=== PATIENT | male | born 1985 | race African-American/Black ===

== ENCOUNTER 2018-06-19 17:43 | Emergency (ER) | payer BC, MEDICAID ==
[~2018-06-19] VITALS: Ht 165.1 cm; Wt 126.6 kg
[2018-06-19 17:43] VITALS: BP 142/71
--- NOTE | 2018-06-19 18:44 | PHYS DOC ---
Adult General Chief Complaint Chief Complaint ankle pain [facility] HPI [age] years old male presented to the emergency department with right ankle pain for 3 weeks does not recall any injury to it Review of Systems Review of Systems Constitutional: Denies fever or chills [] Eyes: Denies change in visual acuity, redness, or eye pain [] HENT: Denies nasal congestion or sore throat [] Respiratory: Denies cough or shortness of breath [] Cardiovascular: No additional information not addressed in HPI [] GI: Denies abdominal pain, nausea, vomiting, bloody stools or diarrhea [] : Denies dysuria or hematuria [] Musculoskeletal: Denies back pain Integument: Denies rash or skin lesions [] Neurologic: Denies headache, focal weakness or sensory changes [] Endocrine: Denies polyuria or polydipsia [] All other systems were reviewed and found to be within normal limits, except as documented in this note. Allergies Allergies Allergies Coded Allergies Type Severity Reaction Last Updated Verified Sulfa (Sulfonamide Antibiotics) Allergy Unknown 06/19/18 Yes Uncoded Allergies Type Severity Reaction Last Updated Verified g6pd Allergy Unknown 06/19/18 Physical Exam Physical Exam Constitutional: Well developed, well nourished, no acute distress, non-toxic appearance. [] HENT: Normocephalic, atraumatic, bilateral external ears normal, oropharynx moist, no oral exudates, nose normal. [] Eyes: PERRLA, EOMI, conjunctiva normal, no discharge. [] Neck: Normal range of motion, no tenderness, supple, no stridor. [] Cardiovascular:Heart rate regular rhythm, no murmur [] Lungs & Thorax: Bilateral breath sounds clear to auscultation [] Abdomen: Bowel sounds normal, soft, no tenderness, no masses, no pulsatile masses. [] Skin: Warm, dry, no erythema, no rash. [] Back: No tenderness, no CVA tenderness. [] Extremities: No tenderness, no cyanosis, no clubbing, ROM intact, no edema. [] Neurologic: Alert and oriented X 3, normal motor function, normal sensory function, no focal deficits noted. [] Psychologic: Affect normal, judgement normal, mood normal. [] EKG EKG [] Radiology/Procedures Radiology/Procedures [] Impressions: Ankle sprain Course & Med Decision Making Course & Med Decision Making Pertinent Labs and Imaging studies reviewed. (See chart for details) [] Final Impression Final Impression [] Problems: (1) Mild ankle sprain Qualifiers: Qualified Codes: S93.401A - Sprain of unspecified ligament of right ankle, initial encounter Dragon Disclaimer Dragon Disclaimer This electronic medical record was generated, in whole or in part, using a voice recognition dictation system. CHANTAL GUERRIER MD Jun 19, 2018 18:44
--- NOTE | 2018-06-19 21:56 | RAD ---
Three-view right ankle dated 06/19/2018. No comparison available. Clinical data indication: Right ankle pain for 3 weeks. FINDINGS: 3 views right ankle show normal bony alignment. No displaced fracture. No acute osseous or articular abnormality. Talar dome is intact. Mild soft tissue swelling. IMPRESSION: No apparent acute bony abnormality. Electronically signed by: Jeffery Singletary MD (06/19/2018 9:52 PM) [facility]
== END 2018-06-19 19:04 | disposition home or self-care (01) ==
LOC: ER 17:43
DX: S93.491A Sprain of other ligament of right ankle, initial encounter (principal); Z88.2 Allergy status to sulfonamides; X58.XXXA Exposure to other specified factors, initial encounter; Y93.89 Activity, other specified; Y92.89 Other specified places as the place of occurrence of the external cause; Y99.8 Other external cause status
CPT/HCPCS: 73610; 99283; L4350

== ENCOUNTER 2018-08-22 23:41 | Emergency (ER) | payer BC, MEDICAID ==
[~2018-08-22] VITALS: Ht 165.1 cm; Wt 111.1 kg
--- NOTE | 2018-08-22 23:47 | ED.ADGEN ---
Past History Past Medical History: Anxiety, Bipolar, HIV, Hypertension, Other Alcohol Use: None Drug Use: None Adult General Chief Complaint Chief Complaint ".. I started getting sick a couple days ago.. fever.. sore throat.. congestion .. drainage..." [facility] HPI Patient is a 33 year old male who presents with above hx and complaints of fever , chills, congestion, drainage, pharyngitis, cough, arthralgia, myalgia and malaise. Patient denies any specific ill contacts that all of his work mates have upper respiratory and viral infections. Patient has a significant medical history of diagnosis of HIV in February 2010. Patient has been on Genvoya. Patient's last CD4 count was 1800. Patient's last viral load was 0. Patient take Bactrim because of sulfa allergy G6PD. Patient normally follows with Dr. Becker at infectious disease clinic. Patient no longer uses illicit drugs. Does occasionally smoke marijuana. No smoking x 3 weeks. Patient does not consume alcohol. Review of Systems Review of Systems Constitutional: History fever or chills [] Eyes: Denies change in visual acuity, redness, or eye pain [] HENT: History nasal congestion and sore throat [] Respiratory: The street cough Cardiovascular: No additional information not addressed in HPI [] GI: Denies abdominal pain, nausea, vomiting, bloody stools or diarrhea [] : Denies dysuria or hematuria [] Musculoskeletal: Denies back pain or joint pain [] Integument: Denies rash or skin lesions [] Neurologic: Denies headache, focal weakness or sensory changes [] Endocrine: Denies polyuria or polydipsia [] All other systems were reviewed and found to be within normal limits, except as documented in this note. Family History Family History Noncontributory Current Medications Current Medications Current Medications Medications (Trade) Dose Ordered Sig/Piper Start Time Stop Time Status Last Admin Dose Admin Acetaminophen (Tylenol) 1,000 mg 1X ONCE 08/23/18 00:30 08/23/18 00:31 DC 08/23/18 00:14 1,000 MG Lactated Ringer's 1,000 ml @ 1,000 mls/hr Q1H 08/23/18 00:30 08/23/18 01:29 DC 08/23/18 00:15 1,000 MLS/HR Allergies Allergies Allergies Coded Allergies Type Severity Reaction Last Updated Verified Sulfa (Sulfonamide Antibiotics) Allergy Unknown 06/19/18 Yes Uncoded Allergies Type Severity Reaction Last Updated Verified g6pd Allergy Unknown 06/19/18 Physical Exam Physical Exam Constitutional: Moderately acute distress, non-toxic appearance. [] HENT: Normocephalic, atraumatic, bilateral external ears normal, oropharynx moist, ejected pharynx,post nasal drainage, no oral exudates, nose swollen turbinates and clear rhinorrhea Eyes: PERRLA, EOMI, conjunctiva normal, no discharge. [] Neck: Normal range of motion, no tenderness, supple, no stridor. [] Cardiovascular: Tachycardia Heart rate regular rhythm, no murmur [] Lungs & Thorax: Bilateral breath sounds equal at apex with scattered wheezes auscultation [] Abdomen: Bowel sounds normal, soft, no tenderness, no masses, no pulsatile masses. [] Skin: Warm, dry, no erythema, no rash. [Tattoos Back: No tenderness, no CVA tenderness. [] Extremities: No tenderness, no cyanosis, no clubbing, ROM intact, no edema. [] Neurologic: Alert and oriented X 3, normal motor function, normal sensory function, no focal deficits noted. [] Psychologic: Affect anxious, judgement normal, mood normal. [] Current Patient Data Vital Signs Vital Signs Date Time Temp Pulse Resp B/P (MAP) Pulse Ox O2 Delivery O2 Flow Rate FiO2 08/23/18 01:00 88 20 138/80 (99) 97 Room Air 08/22/18 23:53 98.6 Lab Results Laboratory Tests Test 08/23/18 00:01 08/23/18 00:02 08/23/18 00:22 Urine Collection Type Unknown Urine Color Yellow Urine Clarity Clear Urine pH 7.0 Urine Specific Bison 1.015 Urine Protein Neg (NEG-TRACE) Urine Glucose (UA) Neg mg/dL (NEG) Urine Ketones (Stick) Neg mg/dL (NEG) Urine Blood Neg (NEG) Urine Nitrite Neg (NEG) Urine Bilirubin Neg (NEG) Urine Urobilinogen Dipstick 1 mg/dL (0.2 mg/dL) Urine Leukocyte Esterase Neg (NEG) Urine RBC Rare /HPF (0-2) Urine WBC 0 /HPF (0-4) Urine Squamous Epithelial Cells Occ /LPF Urine Bacteria 0 /HPF (0-FEW) Urine Opiates Screen Neg (NEG) Urine Methadone Screen Neg (NEG) Urine Barbiturates Neg (NEG) Urine Phencyclidine Screen Neg (NEG) Urine Amphetamine/Methamphetamine Neg (NEG) Urine Benzodiazepines Screen Neg (NEG) Urine Cocaine Screen Neg (NEG) Urine Cannabinoids Screen Pos (NEG) Urine Ethyl Alcohol Neg (NEG) White Blood Count 10.9 x10^3/uL (4.0-11.0) Red Blood Count 4.55 x10^6/uL (4.30-5.70) Hemoglobin 13.1 g/dL (13.0-17.5) Hematocrit 40.2 % (39.0-53.0) Mean Corpuscular Volume 89 fL (79-100) Mean Corpuscular Hemoglobin 29 pg (25-35) Mean Corpuscular Hemoglobin Concent 33 g/dL (31-37) Red Cell Distribution Width 12.5 % (11.5-14.5) Platelet Count 273 x10^3/uL (140-400) Neutrophils (%) (Auto) 67 % (31-73) Lymphocytes (%) (Auto) 21 % (24-48) L Monocytes (%) (Auto) 8 % (0-9) Eosinophils (%) (Auto) 3 % (0-3) Basophils (%) (Auto) 1 % (0-3) Neutrophils # (Auto) 7.2 x10^3uL (1.8-7.7) Lymphocytes # (Auto) 2.3 x10^3/uL (1.0-4.8) Monocytes # (Auto) 0.9 x10^3/uL (0.0-1.1) Eosinophils # (Auto) 0.4 x10^3/uL (0.0-0.7) Basophils # (Auto) 0.1 x10^3/uL (0.0-0.2) Sodium Level 137 mmol/L (136-145) Potassium Level 3.9 mmol/L (3.5-5.1) Chloride Level 100 mmol/L (98-107) Carbon Dioxide Level 27 mmol/L (21-32) Anion Gap 10 (6-14) Blood Urea Nitrogen 15 mg/dL (8-26) Creatinine 0.9 mg/dL (0.7-1.3) Estimated GFR (Cockcroft-Gault) 117.6 Glucose Level 95 mg/dL (70-99) Calcium Level 8.9 mg/dL (8.5-10.1) Magnesium Level 1.9 mg/dL (1.8-2.4) Total Bilirubin 0.5 mg/dL (0.2-1.0) Direct Bilirubin 0.1 mg/dL (0.0-0.2) Aspartate Amino Transferase (AST) 17 U/L (15-37) Alanine Aminotransferase (ALT) 29 U/L (16-63) Alkaline Phosphatase 60 U/L (46-116) Creatine Kinase 226 U/L (39-308) Troponin I Quantitative < 0.017 ng/mL (0-0.055) Total Protein 8.2 g/dL (6.4-8.2) Albumin 4.0 g/dL (3.4-5.0) Lipase 107 U/L (73-393) Influenza Type A (Rapid) Negative (NEGATIVE) Influenza Type B (Rapid) Negative (NEGATIVE) Group A Streptococcus Rapid Negative (NEGATIVE) EKG EKG [] Radiology/Procedures Radiology/Procedures My interpretation of chest x-ray shows no acute cardiopulmonary findings.[] Course & Med Decision Making Course & Med Decision Making Pertinent Labs and Imaging studies reviewed. (See chart for details). Push fluids. Take Tylenol and ibuprofen as needed for pain and discomfort and fever. Benadryl 25-50 mg 4 times a day may be helpful for drainage and congestion. Follow-up primary care. Follow-up with infectious disease clinic continue your Genvoya. [] Final Impression Final Impression 1.Viral Syndrome 2. History of HIV diagnosis February 2010- On Genvoya 3. Clinical Sleep Apnea Dragon Disclaimer Dragon Disclaimer This electronic medical record was generated, in whole or in part, using a voice recognition dictation system. Dragon Disclaimer This chart was dictated in whole or in part using Voice Recognition software in a busy, high-work load, and often noisy Emergency Department environment. It may contain unintended and wholly unrecognized errors or omissions. Discharge Summary Visit Information Final Diagnosis Problems Medical Problems: (1) Viral syndrome Status: Acute Brief Hospital Course Allergies Allergies Coded Allergies Type Severity Reaction Last Updated Verified Sulfa (Sulfonamide Antibiotics) Allergy Unknown 06/19/18 Yes Uncoded Allergies Type Severity Reaction Last Updated Verified g6pd Allergy Unknown 12/3/18 Vital Signs Vital Signs Date Time Temp Pulse Resp B/P (MAP) Pulse Ox O2 Delivery O2 Flow Rate FiO2 08/23/18 01:00 88 20 138/80 (99) 97 Room Air 08/22/18 23:53 98.6 Lab Results Laboratory Tests Test 08/23/18 00:01 08/23/18 00:02 08/23/18 00:22 Urine Collection Type Unknown Urine Color Yellow Urine Clarity Clear Urine pH 7.0 Urine Specific Bison 1.015 Urine Protein Neg (NEG-TRACE) Urine Glucose (UA) Neg mg/dL (NEG) Urine Ketones (Stick) Neg mg/dL (NEG) Urine Blood Neg (NEG) Urine Nitrite Neg (NEG) Urine Bilirubin Neg (NEG) Urine Urobilinogen Dipstick 1 mg/dL (0.2 mg/dL) Urine Leukocyte Esterase Neg (NEG) Urine RBC Rare /HPF (0-2) Urine WBC 0 /HPF (0-4) Urine Squamous Epithelial Cells Occ /LPF Urine Bacteria 0 /HPF (0-FEW) Urine Opiates Screen Neg (NEG) Urine Methadone Screen Neg (NEG) Urine Barbiturates Neg (NEG) Urine Phencyclidine Screen Neg (NEG) Urine Amphetamine/Methamphetamine Neg (NEG) Urine Benzodiazepines Screen Neg (NEG) Urine Cocaine Screen Neg (NEG) Urine Cannabinoids Screen Pos (NEG) Urine Ethyl Alcohol Neg (NEG) White Blood Count 10.9 x10^3/uL (4.0-11.0) Red Blood Count 4.55 x10^6/uL (4.30-5.70) Hemoglobin 13.1 g/dL (13.0-17.5) Hematocrit 40.2 % (39.0-53.0) Mean Corpuscular Volume 89 fL (79-100) Mean Corpuscular Hemoglobin 29 pg (25-35) Mean Corpuscular Hemoglobin Concent 33 g/dL (31-37) Red Cell Distribution Width 12.5 % (11.5-14.5) Platelet Count 273 x10^3/uL (140-400) Neutrophils (%) (Auto) 67 % (31-73) Lymphocytes (%) (Auto) 21 % (24-48) Monocytes (%) (Auto) 8 % (0-9) Eosinophils (%) (Auto) 3 % (0-3) Basophils (%) (Auto) 1 % (0-3) Neutrophils # (Auto) 7.2 x10^3uL (1.8-7.7) Lymphocytes # (Auto) 2.3 x10^3/uL (1.0-4.8) Monocytes # (Auto) 0.9 x10^3/uL (0.0-1.1) Eosinophils # (Auto) 0.4 x10^3/uL (0.0-0.7) Basophils # (Auto) 0.1 x10^3/uL (0.0-0.2) Sodium Level 137 mmol/L (136-145) Potassium Level 3.9 mmol/L (3.5-5.1) Chloride Level 100 mmol/L (98-107) Carbon Dioxide Level 27 mmol/L (21-32) Anion Gap 10 (6-14) Blood Urea Nitrogen 15 mg/dL (8-26) Creatinine 0.9 mg/dL (0.7-1.3) Estimated GFR (Cockcroft-Gault) 117.6 Glucose Level 95 mg/dL (70-99) Calcium Level 8.9 mg/dL (8.5-10.1) Magnesium Level 1.9 mg/dL (1.8-2.4) Total Bilirubin 0.5 mg/dL (0.2-1.0) Direct Bilirubin 0.1 mg/dL (0.0-0.2) Aspartate Amino Transf (AST/SGOT) 17 U/L (15-37) Alanine Aminotransferase (ALT/SGPT) 29 U/L (16-63) Alkaline Phosphatase 60 U/L (46-116) Creatine Kinase 226 U/L (39-308) Troponin I Quantitative < 0.017 ng/mL (0-0.055) Total Protein 8.2 g/dL (6.4-8.2) Albumin 4.0 g/dL (3.4-5.0) Lipase 107 U/L (73-393) Influenza Type A (Rapid) Negative (NEGATIVE) Influenza Type B (Rapid) Negative (NEGATIVE) Group A Streptococcus Rapid Negative (NEGATIVE) Brief Hospital Course Mr. Torres is a 33 old male who presented with viral syndrome. Discharge Information Condition at Discharge: Improved, Stable Disposition/Orders: D/C to Home Dischare Medications Current Medications Lactated Ringer's 1,000 ml @ 1,000 mls/hr Q1H IV Last administered on at 00:15; Admin Dose 1,000 MLS/HR; Start 08/23/18 at 00:30; Stop 08/23/18 at 01: 29; Status DC Acetaminophen (Tylenol) 1,000 mg 1X ONCE PO Last administered on 08/23/18at 00: 14; Admin Dose 1,000 MG; Start 08/23/18 at 00:30; Stop 08/23/18 at 00:31; Status DC GARRETT WEST MD Aug 22, 2018 23:47
[2018-08-23] MEDS: ACETAMINOPHEN 500 MG TABLET PO ONE (00:14)
[2018-08-23] MEDS: IV RINGERS SOLUTION,LACTATED 1,000 ML IV SCH (00:15)
[2018-08-23 00:46] LABS: BASO # 0.1 x10^3/uL (0.0-0.2); BASO % 1 % (0-3); EOS # 0.4 x10^3/uL (0.0-0.7); EOS % 3 % (0-3); HEMATOCRIT 40.2 % (39.0-53.0); HEMOGLOBIN 13.1 g/dL (13.0-17.5); LYMPH # 2.3 x10^3/uL (1.0-4.8); LYMPH % 21 % (24-48); MEAN CORPUSCULAR HEMOGLOBIN 29 pg (25-35); MEAN CORPUSCULAR HGB CONC 33 g/dL (31-37); MEAN CORPUSCULAR VOLUME 89 fL (79-100); MONO # 0.9 x10^3/uL (0.0-1.1); MONO % 8 % (0-9); NEUT # 7.2 x10^3uL (1.8-7.7); NEUT % 67 % (31-73); PLATELET COUNT 273 x10^3/uL (140-400); RED BLOOD COUNT 4.55 x10^6/uL (4.30-5.70); RED CELL DISTRIBUTION WIDTH 12.5 % (11.5-14.5); WHITE BLOOD COUNT 10.9 x10^3/uL (4.0-11.0)
[2018-08-23 00:58] LABS: BARBITURATES NEG (NEG); BENZODIAZEPINES NEG (NEG); BILIRUBIN,URINE NEG (NEG); CANNABINOIDS POS (NEG); CLARITY,URINE CLEAR; COCAINE NEG (NEG); COLOR,URINE YELLOW; GLUCOSE,URINE NEG (NEG); METHADONE NEG (NEG); OPIATES NEG (NEG); PHENCYCLIDINE NEG (NEG); UROBILINOGEN,URINE 1 mg/dL (0.2 mg/dL)
[2018-08-23 00:58] LABS: CALCIUM 8.9 mg/dL (8.5-10.1); CREATININE 0.9 mg/dL (0.7-1.3); DIRECT BILIRUBIN 0.1 mg/dL (0.0-0.2); GFR 117.6; MAGNESIUM 1.9 mg/dL (1.8-2.4); POTASSIUM 3.9 mmol/L (3.5-5.1); TOTAL BILIRUBIN 0.5 mg/dL (0.2-1.0); TOTAL PROTEIN 8.2 g/dL (6.4-8.2)
[2018-08-23 00:59] LABS: BACTERIA,URINE 0 /HPF (0-FEW); NITRITE,URINE NEG (NEG); RBC,URINE RARE /HPF (0-2); SQUAMOUS EPITHELIAL CELL,UR OCC /LPF; WBC,URINE 0 /HPF (0-4)
[2018-08-23 01:00] VITALS: BP 138/80
[2018-08-23 01:00] LABS: AMPHETAMINE/METHAMPHETAMINE NEG (NEG)
[2018-08-23 01:10] LABS: INFLUENZA A PATIENT NEGATIVE (NEGATIVE); INFLUENZA B PATIENT NEGATIVE (NEGATIVE)
--- NOTE | 2018-08-23 07:53 | RAD ---
Chest, PA and Lateral: Technique: PA and lateral views of the chest were obtained. History: Congestion, cough, body aches. Comparison: 08/04/2014. Findings/ impression: The heart and pulmonary vasculature appear within normal limits. The lungs are clear. The pleural margins are clear. There is a density projecting in the neck region seen on the PA view could be aerated in the larynx or soft tissue emphysema. Recommend CT soft tissue neck for further evaluation. was informed at time of dictation. Electronically signed by: Zay Ortiz MD (08/23/2018 7:48 AM) [facility]
== END 2018-08-23 01:25 | disposition home or self-care (01) ==
LOC: ER 23:41
DX: B34.9 Viral infection, unspecified (principal); G47.30 Sleep apnea, unspecified; F41.9 Anxiety disorder, unspecified; F31.9 Bipolar disorder, unspecified; I10 Essential (primary) hypertension; Z88.2 Allergy status to sulfonamides
CPT/HCPCS: 36415; 71046; 80048; 80076; 80307; 81001; 82550; 83690; 83735; 84484; 85025; 87070; 87804; 87880; J7120; 99284-25

== ENCOUNTER 2019-03-26 11:44 | Emergency (ER) | payer BC ==
[~2019-03-26] VITALS: Ht 165.1 cm; Wt 134.3 kg
[2019-03-26 11:50] VITALS: BP 148/92
[2019-03-26] MEDS ORDERED: CLIN300C8 PO (12:05)
[2019-03-26] MEDS ORDERED: cefTRIAXone SODIUM 1 GM VIAL ONE (12:10)
[2019-03-26] MEDS ORDERED: LIDOCAINE 1% Multi-Dose 20 ML VIAL. ONE (12:13)
[2019-03-26] MEDS ORDERED: cefTRIAXone IM 1 GM VIAL IM ONE (12:15)
--- NOTE | 2019-03-26 13:56 | PHYS DOC ---
Past History Past Medical History: Bipolar, HIV, Hypertension Past Surgical History: No Surgical History Alcohol Use: None Drug Use: None Adult General Chief Complaint Chief Complaint: SKIN PROBLEM HPI HPI Patient is a 33 yo m with cc of rash was at a friends house a couple nights ago thinks got bit by something right arm but not sure exactly what. Patient has no fever does have a history of HIV viral load undetectable on medication for that. No fever that he knows of he did feel warm yesterday. He also noticed an area of swelling to his left lower jaw area. Review of Systems Review of Systems Eyes: Denies change in visual acuity, redness, or eye pain [] HENT: Denies nasal congestion or sore throat [] Respiratory: Denies cough or shortness of breath [] Cardiovascular: No additional information not addressed in HPI [] GI: Denies abdominal pain, nausea, vomiting, bloody stools or diarrhea [] : Denies dysuria or hematuria [] Musculoskeletal: Denies back pain or joint pain [] Neurologic: Denies headache, focal weakness or sensory changes [] Endocrine: Denies polyuria or polydipsia [] All other systems were reviewed and found to be within normal limits, except as documented in this note. Current Medications Current Medications Current Medications Medications (Trade) Dose Ordered Sig/Piper Start Time Stop Time Status Last Admin Dose Admin Ceftriaxone Sodium (Rocephin Im) 1 gm 1X ONCE 03/26/19 12:15 03/26/19 12:16 DC 03/26/19 12:20 1 GM Ceftriaxone Sodium (Rocephin) 1 gm STK-MED ONCE 03/26/19 12:10 03/26/19 12:11 DC Lidocaine HCl 20 ml STK-MED ONCE 03/26/19 12:13 03/26/19 12:13 DC Allergies Allergies Allergies Coded Allergies Type Severity Reaction Last Updated Verified Sulfa (Sulfonamide Antibiotics) Allergy Unknown 06/19/18 Yes Uncoded Allergies Type Severity Reaction Last Updated Verified g6pd Allergy Unknown 06/19/18 Physical Exam Physical Exam Constitutional: Well developed, well nourished, no acute distress, non-toxic appearance. [] HENT: Normocephalic, atraumatic, bilateral external ears normal, oropharynx moist, no oral exudates, nose normal. [] Eyes: PERRLA, EOMI, conjunctiva normal, no discharge. [] Neck: Normal range of motion, no tenderness, supple, no stridor. [] Pulmonary: Normal respiratory effort no increased work of breathing no obvious chest wall trauma Abdomen: Bowel sounds normal, soft, no tenderness, no masses, no pulsatile masses. [] Skin: There is an area of induration and erythema and warmth to the right deltoid area there is a central scab but no fluctuance was appreciated. There is what appears to be almost a keloid appearing structure at angle of left mandible. No fluctuance or erythema or induration is noted there Back: No tenderness, no CVA tenderness. [] Extremities: No tenderness, no cyanosis, no clubbing, ROM intact, no edema. [] Neurologic: Alert and oriented X 3, normal motor function, normal sensory function, no focal deficits noted. [] Psychologic: Affect normal, judgement normal, mood normal. [] Current Patient Data Vital Signs Vital Signs Date Time Temp Pulse Resp B/P (MAP) Pulse Ox O2 Delivery O2 Flow Rate FiO2 03/26/19 11:50 98.8 78 18 97 Room Air * None Temperature (Fahrenheit): * 98.8 degrees F (97.6-99.5) Patient Temperature * 98.8 degrees F (97.5-99.5) Temperature Source * Temporal Artery Scan Blood Pressure Systolic * 148 mm Hg (100-140) H Blood Pressure Diastolic * 92 mm Hg (60-100) Blood Pressure Mean * 110 mm Hg Blood Pressure Location * Left Arm Blood Pressure Source * Automatic Cuff Pulse Rate * 78 beats per minute (60-90) Pulse Assessment Method * Monitor Respiratory Rate * 18 breaths per minute (12-24) Oxygen Delivery Method * Room Air EKG EKG [] Radiology/Procedures Radiology/Procedures [] Course & Med Decision Making Course & Med Decision Making Pertinent Labs and Imaging studies reviewed. (See chart for details) 33-year-old male presenting with what appears to be cellulitis of the right upper extremity. He is HIV-positive he says his last CD4 count was over 1000. He is compliant with medication he said his viral load is been undetectable for over 10 years. Patient has evidence of cellulitis I don't appreciate any obvious fluctuance at this time. His point time we did give a dose of IM antibiotics and prescription for clindamycin and I gave him strict return precautions to come back for any worsening symptoms or not improving as expected Niru Disclaimer Dragon Disclaimer This electronic medical record was generated, in whole or in part, using a voice recognition dictation system. Departure Departure: Impression: Primary Impression: Cellulitis Disposition: 01 HOME, SELF-CARE Condition: STABLE Patient Instructions: Cellulitis, [id number] Scripts Clindamycin Hcl (CLINDAMYCIN HCL) 300 Mg Capsule 1 CAP PO TID for cellulitis, #30 CAP Prov: RICHARDSON MAC MD 03/26/19 RICHARDSON MAC MD Mar 26, 2019 13:56
== END 2019-03-26 12:15 | disposition home or self-care (01) ==
LOC: ER 11:44
DX: L03.113 Cellulitis of right upper limb (principal); F31.9 Bipolar disorder, unspecified; I10 Essential (primary) hypertension; Z88.2 Allergy status to sulfonamides
CPT/HCPCS: 96372; 99283; J0696